=== PATIENT | male | born 1995 | race Caucasian/White ===

== ENCOUNTER 2021-08-26 00:26 | Emergency (ER) | payer MEDICAID, SELFPAY ==
[2021-08-26 00:35] VITALS: BP 125/80; PULSE 81; RESP 20; TEMP 36.7; O2SAT 97; BMI 28.5
--- NOTE | 2021-08-26 00:42 | W.ED.WOUNDLC ---
HPI - Wound/Laceration General: Chief Complaint: Wound/Laceration Stated Complaint: lac lft thumb Time Seen by Provider: 08/26/21 00:37 History of Present Illness: 26-year-old male patient was brought in by mother and grandmother for concerns of laceration to the left thumb. Patient was cutting something with a drip box tender and it slipped causing him to injure his thumb. Patient cannot recall his last tetanus. Patient appears well. Patient appears no acute distress. Onset (ago): hour(s) Location: other (Left hand) Place: home Patient tetanus UTD: No Context: accidental Associated symptoms: Denies fever(s) Review of Systems General: Reports: 10 or more systems reviewed and unremarkable except in HPI and below Const: Denies: fever(s) Card: Denies: chest pain Resp: Denies: dyspnea Musc: Reports: extremity pain Skin/Breast: Reports: new lesions Physical Exam Const: COMMON NORMALS: alert HENMT: COMMON NORMALS: normocephalic HEAD & SCALP: normocephalic Neck/C-Spine: COMMON NORMALS: full ROM Resp: COMMON NORMALS: normal respiratory effort Cardio: COMMON NORMALS: regular rate RATE: regular rate Extremity: LEFT UPPER EXTREMITY: Yes hand & digits (Superficial laceration to the distal thumb. No foreign body) Neuro: SAVI COMA SCALE: document GCS findings Beverly coma scale eye opening: Spontaneous Beverly coma scale verbal response: Orientated Beverly coma scale motor response: Obey commands Beverly coma scale total score: 15 SENSORIUM/ORIENTATION: Yes alert Skin: NARRATIVE SKIN EXAM: 5 mm laceration to the distal thumb of the left hand. No foreign body, no tendon injury. Course Vital Signs: Vital signs: Vital Signs Temperature 98.0 F 08/26/21 00:35 Pulse Rate 81 08/26/21 00:35 Respiratory Rate 20 H 08/26/21 00:35 Blood Pressure 125/80 08/26/21 00:35 Pulse Oximetry 97 08/26/21 00:35 MDM - Wound/Laceration Medical Decision Making Patient comes in for a superficial laceration to the left thumb. Grandmother and mother were concerned due to patient not washing his hands frequently and the knife blade being dirty. On exam is a superficial laceration to the distal thumb along the lateral nailbed. No foreign body is noted, no tendon injury is noted. Differential diagnosis is need for prophylaxis antibiotic, need for prophylaxis tetanus, laceration, foreign body, tendon injury. No signs of serious injury was noted. No foreign body or tendon injury was noted. Wound was cleaned, antibiotic will be given orally. Dry clean dressing was applied to wound. Patient reported understanding of care plan need for follow-up or return to the ER. Discharge Plan Discharge Patient Disposition: Home Clinical Impression: Laceration of finger Qualifiers: Encounter type: initial encounter Finger: thumb Damage to nail status: without damage Foreign body presence: without foreign body Laterality: left Qualified Code(s): S61.012A - Laceration without foreign body of left thumb without damage to nail, initial encounter Condition: Stable Prescriptions: New cephalexin 500 mg capsule 500 mg PO BID 7 Days Qty: 14 0RF Discharge Orders: Discharge ED (Routine); Ordered 08/26/21 Ordered By: Chau Ceballos Discharge Diet: Usual diet Discharge Activity: Limit activity as instructed Patient Instructions: Laceration (ED) Activity Restrictions/Additional Instructions: Keep wound clean and dry. Leave initial dressing on until healed. Change dressing if it becomes wet or dirty. Take cephalexin 500 mg twice a day for next 7 days. Monitor site for signs of infection such as significant redness, fever, swelling. Follow-up with primary care in 1 week for recheck. Return to ER for worsening symptoms or new concerns. Coding Level of Care Code ED Locomotive Pipe Fitter for Naomi Bailon
[2021-08-26] MEDS: cephALEXin 500 mg Capsule PO (00:47)
[2021-08-26] MEDS: tetanus-dipt-pertussis 0.5 mL SDV IM (00:48)
== END 2021-08-26 00:57 | disposition home or self-care (01) ==
PROVIDERS: Emergency Provider Nurse Practitioner Family
DX: S61.012A Laceration without foreign body of left thumb without damage to nail, initial encounter (principal); W26.0XXA Contact with knife, initial encounter; Z23 Encounter for immunization
CPT/HCPCS: 90471; 90715; 99283

== ENCOUNTER 2021-10-02 16:40 | Emergency (ER) | payer MEDICAID, SELFPAY ==
[2021-10-02 17:17] VITALS: BP 110/66; PULSE 88; RESP 13; TEMP 36.6; O2SAT 97; BMI 28.5
--- NOTE | 2021-10-02 17:36 | ED_ITS ---
HPI - Extremity Problem General: Chief complaint: Extremity Injury, Upper Stated complaint: left hand lac Time Seen by Provider: 10/02/21 17:10 History of Present Illness: Patient is a 26-year-old male who comes to the ED with a laceration to left hand. Patient was using a boxer operator to break down some boxes and accidentally cut his left hand during use. Lacerations on the palm of the left hand. Patient is up-to-date on his tetanus Associated symptoms: Deny chest pain, fever(s) or rash Review of Systems Const: Denies: fever(s), chills or fatigue Eyes: Denies: change in vision or eye discomfort ENMT: Denies: throat pain, odynophagia, nasal discharge or nasal congestion Card: Denies: chest pain, palpitations, edema, swelling of feet/ankles, dyspnea on exertion or orthopnea Resp: Denies: dyspnea, productive cough or non-productive cough GI: Denies: abdominal pain, nausea, vomiting, diarrhea, constipation or hematochezia : Denies: flank pain, difficulty urinating, dysuria or hematuria Musc: Denies: neck pain, back pain or extremity swelling Skin/Breast: Reports: new lesions (laceration to left palm); Denies: rash Neuro: Denies: headache(s), numbness in extremities or weakness in extremities PFS ED PFSH: Medical History No pertinent family history Surgical History No pertinent past surgical history Physical Exam Const: COMMON NORMALS: no acute distress, patient oriented x3 and alert GENERAL APPEARANCE: cooperative and comfortable HENMT: COMMON NORMALS: normocephalic HEAD & SCALP: normocephalic MOUTH: Normal oral and palatal mucosa present THROAT: posterior oropharynx normal and uvula midline Neck/C-Spine: COMMON NORMALS: supple GENERAL: Yes normal visual inspection Resp: COMMON NORMALS: normal respiratory effort, No retractions, No use of accessory muscles and clear to auscultation bilaterally AUSCULTATION: clear to auscultation bilaterally Cardio: COMMON NORMALS: regular rate, regular rhythm, S1 normal heart sound present, S2 normal heart sound present, No gallops present (Cardio), No clicks present (Cardio), No murmurs present (Cardio) and Peripheral pulses 2+ throughout RATE: regular rate RHYTHM: regular rhythm HEART SOUNDS: S1 normal heart sound present and S2 normal heart sound present PERIPHERAL PULSES: Peripheral pulses 2+ throughout GI: COMMON NORMALS: Normal to inspection, nondistended, normoactive bowel sounds present, Soft to palpation, non-tender and no masses PALPATION: Yes Soft to palpation : COMMON NORMALS: Yes no CVA tenderness BLADDER/KIDNEY EXAM: Yes no CVA tenderness Back/Pelvis: COMMON NORMALS: no CVA tenderness Extremity: NARRATIVE EXTREMITY EXAM: Left hand?2 cm linear laceration to palmar aspect of hand in zone 5. No visible tendon laceration seen. Patient has full range of motion of flexion and extension and fingers. Neurovascular tact. Neuro: COMMON NORMALS: patient oriented x3 and moves all extremities SENSORIUM/ORIENTATION: Yes alert Skin: GENERAL SKIN EXAM: dry skin Procedures Laceration Laceration 1: Site: hand Side (If applicable): left Size (cm): 2 Description: linear Depth: simple, single layer Local Anesthetic: lidocaine 1% Amount of anesthesia used (mL): 7 Pre-repair: irrigated extensively (With normal saline and beta iodine solution.) Skin layer closed with: nylon Size (cm): 4-0 Number of sutures: 7 Technique: simple, interrupted Course Vital Signs: Vital signs: Vital Signs Temperature 97.8 F 10/02/21 17:17 Pulse Rate 88 10/02/21 17:17 Respiratory Rate 13 10/02/21 17:17 Blood Pressure 110/66 10/02/21 17:17 Pulse Oximetry 97 10/02/21 17:17 MDM - Extremity (Nontraumatic) Medical Decision Making Patient is a 26-year-old male comes to the ED with laceration to palm of left hand. Patient was up-to-date on tetanus. No visible tendon damage noted. Patient has full range of motion with flexion and extension of the fingers. Neurovascular tact. Laceration site was irrigated extensively with normal saline and beta iodine. Lidocaine 1% was used as local and 7 sutures were placed to close laceration site. Triple antibiotic ointment and bandage was then applied. Patient was given a dose of cephalexin while here in the ED. He was discharged home with a prescription for cephalexin told to follow-up with medical provider in the next 7 to 10 days to have sutures removed. Return to ED precautions given. He was instructed how to care for laceration site. Patient understood and agreed with plan. Discharge Plan Discharge Patient Disposition: Home Clinical Impression: Hand laceration Qualifiers: Encounter type: initial encounter Foreign body presence: without foreign body Laterality: left Qualified Code(s): S61.412A - Laceration without foreign body of left hand, initial encounter Condition: Stable Prescriptions: New cephalexin 500 mg capsule 500 mg PO Q6H 4 Days Qty: 16 0RF Discharge Orders: Discharge ED (Routine); Ordered 10/02/21 Ordered By: Gal Mobley Discharge Diet: Regular Discharge Activity: Limit activity as instructed Patient Instructions: Laceration (ED) Activity Restrictions/Additional Instructions: Take full course of antibiotics as prescribed. Limit hard labor activity on hand for the next 3 to 4 days to allow for laceration site to heal. Laceration site clean and dry for the next 48 hours. Then after that you can clean and re- bandage daily. You can also apply triple antibiotic ointment on laceration site daily. Watch for signs of infection such as redness, warmth, increased tenderness and puslike drainage. If you see the signs of infection return to the ED, urgent care or PCP for reevaluation. call your PCP to schedule a follow- up appointment for reevaluation and suture removal in about 7- 10 days. Continue taking all home meds. Follow discharge plans as discussed. You can return to the ED if symptoms worsen. Coding Level of Care Code ED Brake Liner for Naomi Bailon Exam Comprehensive
[2021-10-02] MEDS: cephALEXin 500 mg Capsule PO (18:25)
[2021-10-02] MEDS: neomycin-poly-bacitracin oint 0.9 gm Pkt 1 APPLIC TOPICAL (19:28)
--- NOTE | 2021-10-09 20:30 | PC.NURSE ---
Pt's stitches removed out of left hand. Seven stitches removed at this time.
== END 2021-10-02 19:41 | disposition home or self-care (01) ==
PROVIDERS: Emergency Provider Physician Assistant
DX: S61.412A Laceration without foreign body of left hand, initial encounter (principal); W26.0XXA Contact with knife, initial encounter
CPT/HCPCS: 12001; 99283

== ENCOUNTER → 2022-03-20 11:43 | Outpatient (BNVA) | payer MEDICAID, SELFPAY | PROVIDERS: Referring Provider Family Medicine; Visit Provider Student in an Organized Health Care Education/Training Program | DX: M79.642 Pain in left hand (principal) | CPT/HCPCS: 73130 ==

== ENCOUNTER 2022-05-22 15:32 | Outpatient (CLI) | payer MEDICAID, SELFPAY ==
--- NOTE | 2022-05-22 15:45 | US_ITS ---
WS: [id number] INDICATION: Knot at the base of index finger. Question tendon laceration. TECHNIQUE: Ultrasound soft tissue area of concern. FINDINGS: Ultrasound soft tissue area of concern. No evidence of underlying cystic or solid lesion. N ormal underlying subcutaneous soft tissues. No foreign bodies. No drainable fluid collections. Underl arcelia visualized flexor digitorum in this area appears grossly intact. No other abnormalities. US/US soft tissue/extremity [id number] IMPRESSION: No suspicious abnormalities in the area of concern.
== END 2022-05-22 15:33 | disposition home or self-care (01) ==
LOC: RAD 15:38
PROVIDERS: PCP Family Medicine; Visit Provider Student in an Organized Health Care Education/Training Program
DX: M79.643 Pain in unspecified hand (principal); R22.30 Localized swelling, mass and lump, unspecified upper limb
CPT/HCPCS: 76882

== ENCOUNTER 2022-06-06 06:00 | Outpatient (RCR) | payer MEDICAID, SELFPAY | END 2022-06-26 23:59 | disposition home or self-care (01) | LOC: SPT 06:00 | PROVIDERS: PCP Family Medicine; Visit Provider Family Medicine | DX: M54.9 Dorsalgia, unspecified (principal) | CPT/HCPCS: 97161 ==

== ENCOUNTER → 2023-01-18 13:47 | Outpatient (BNVA) | payer MEDICAID, SELFPAY | PROVIDERS: PCP Family Medicine; Visit Provider Psychiatry & Neurology Psychiatry | DX: F25.9 Schizoaffective disorder, unspecified (principal); Z79.899 Other long term (current) drug therapy | CPT/HCPCS: 80053; 80061; 83036; 84443 ==

== ENCOUNTER → 2023-07-16 14:40 | Outpatient (BNVA) | payer MEDICAID, SELFPAY | PROVIDERS: PCP Family Medicine; Visit Provider Podiatrist Foot & Ankle Surgery | DX: L60.0 Ingrowing nail (principal) | CPT/HCPCS: 99203 ==